=== PATIENT | female | born 1985 ===

== ENCOUNTER 2020-11-27 22:33 | Inpatient (IN) | payer MEDICAID ==
[~2020-11-27] VITALS: Ht 165.1 cm; Wt 83.6 kg
--- NOTE | 2020-11-27 22:40 | NUR ---
G3L2 at 39 weeks and 5 days arrives to unit with complaint of contractions every 4 minutes starting around 2200 and has had some bloody show. Pt reports good movement and denies LOF. Pt denies headaches, blurry vision, or RUQ pain. Clean gown on. Pt oriented to room, bed in low and locked position, call light within reach. US and toco explained and applied. Plan of care reviewed with patient and spouse. Admission assessment started. Vital signs obtained. SVE 4/75/-3, ballotable, membranes intact.
[2020-11-27 23:00] VITALS: BP 124/75; PULSE 78; TEMP 98.4
[2020-11-27 23:15] VITALS: BP 110/63; PULSE 80
[2020-11-27 23:30] VITALS: BP 100/59; PULSE 77
[2020-11-27] MEDS ORDERED: PRENATAL TABLET PO (23:37)
[2020-11-27] MEDS ORDERED: FERROUSAL325 MG PO (23:37)
[2020-11-27 23:45] VITALS: BP 98/57; PULSE 78
[2020-11-28] VITALS (23 sets, daily range): BP systolic 96–154; BP diastolic 56–119; PULSE 71–92; TEMP 97.6–98.3
--- NOTE | 2020-11-28 | NUR ---
18G IV started in left forearm with 1 attempt. Admission labs obtained off IV start. Lactated Ringers bolus infusing. Karol.ANDRES Douglass notified to come to bedside for epidural. Consents reviewed and signed with patient and spouse. All questions answered. Verbalized understanding.
--- NOTE | 2020-11-28 00:29 | NUR ---
0020 - Sarah Beth Douglass CRNA at bedside for epidural placement. Procedure, risks, benefits explained to patient, pt verbalized understanding. Pt repositioned to sitting on edge of bed. 0025 - Difficutly tracing FHR due to maternal positioning. 0029 - Single shot by ANDRES Oh, pt denies any adverse reactions. 0035 - Pt positioned to left lateral for comfort. Safety precautions reviewed. Call light within reach, bed in low and locked position. See Anesthesia record.
[2020-11-28 00:37] LABS: BASO % 0.4 % (0.0-2.0); EOS # 0.1 (0.0-0.7); EOS % 0.7 % (0-4.0); GRAN % 70.8 % (42.2-75.2); HEMATOCRIT 42.7 % (37.0-47.0); LYMPH # 2.4 (1.2-3.4); LYMPH % 21.1 % (20.0-51.0); MEAN CELL VOLUME 77 fl (80.0-100.0); MEAN CORPUSCULAR HEMOGLOBIN 25 pg (27.0-31.0); MEAN CORPUSCULAR HGB CONC 33 g/dl (33.0-37.0); MEAN PLATELET VOLUME 12.2 fl (7.4-10.4); MONO # 0.7 (0.1-0.6); MONO % 6.5 % (1.7-9.3); PLATELET COUNT 240 K/mm3 (130-400); RED BLOOD COUNT 5.55 M/mm3 (4.10-5.30); REDCELL DISTRIBUTION WIDTH-CV 15.8 % (11.5-14.5)
--- NOTE | 2020-11-28 01:30 | NUR ---
Arnold catheter placed to dependent drainage at this time. Clear, yellow urine returned. Secured to leg with statlock. SVE 8/100/-2 with bulging bag of water. 0135 - Pt called out stating she felt a large gush. Large amount of meconium fluid noted on peritowel. Towel changed and pericare provided.
--- NOTE | 2020-11-28 02:26 | NUR ---
0205 - Pt calls out reporting she feels more rectal pressure. SVE 10/+1 and patient feeling urge to push. Dr. Noel notified, see physician notification. 0220 - Arnold catheter removed at this time. 200 mL clear, yellow urine out. Pt positioned into footplates. Educated on pushing techniques, verbalized understanding. Dr. Noel gowned and gloved at perineum. Nursery RN Miranda Tinoco at bedside. 0224 - Initial push at this time. Pushing well. 0226 - Spontaneous vaginal delivery of viable girl. Infant placed to mothers abdomen, care of infant assumed to ED [facility]. Cord clamped x [address] Noel and cut by FOB. Cord blood obtained. 0233 - Spontaneous delivery of intact placenta. Fundal massage by Dr. Noel. Pitocin started at 333 mL/hr per protocol. Small amount of bleeding noted. Second degree perineal laceration repaired by Dr. Noel. EBL 400. 0240 - Pericare provided. Clean chux beneath patient. Ice pack to perineum. Pt repositioned in bed for comfort. Reviewed plan of care. recovery started. See physician delivery note.
--- NOTE | 2020-11-28 05:40 | NUR ---
Pt able to lift and hold each leg off of bed for 5 seconds. Pt positioned to sitting on edge of bed. Epidural catheter removed. Tip smooth, blue, and intact. Pt then able to ambulate to bathroom with standby assistance but was a little unsteady due to a right leg. Pt able to void 600 urine. Pericare explained and provided. Mesh panties and peripad on. Clean gown on. Pt educated on need of 3 measured voids. Pt transferred to room 207 by wheelchair with belongings.
[2020-11-28] MEDS ORDERED: MOTRIN 800800 MG/TAB PO (08:33)
--- NOTE | 2020-11-28 10:04 | NUR ---
Initial visit; Patient thanked Surgery Scheduling Coordinator for offering congratulations for the of her daughter. Surgery Scheduling Coordinator thanked patient for choosing [facility].
[2020-11-29 08:50] VITALS: BP 107/62; PULSE 87; TEMP 97.4
[2020-11-29 17:00] VITALS: BP 108/66; PULSE 83; TEMP 98.3
--- NOTE | 2020-11-29 19:25 | NUR ---
certificate completed and signed. Discharge paperwork given to pt and by day shift. Pt ambulatory off unit with this RN
== END 2020-11-29 19:25 | disposition home or self-care (01) | DRG 807 ==
LOC: LDRO 22:33 → LDR 22:40 → LDRO 23:49 → LDR 23:50 → OB 23:50
PROVIDERS: Student in an Organized Health Care Education/Training Program; ADMIT Obstetrics & Gynecology
PROC: 10E0XZZ Delivery of Products of Conception, External Approach (ICD-10-PCS; principal; 2020-11-28)
PROC: 0KQM0ZZ Repair Perineum Muscle, Open Approach (ICD-10-PCS; 2020-11-28)
DX: O99.02 Anemia complicating childbirth (principal); Z37.0 Single live birth; D64.9 Anemia, unspecified; O77.0 Labor and delivery complicated by meconium in amniotic fluid; O70.1 Second degree perineal laceration during delivery; Z3A.39 39 weeks gestation of pregnancy
CPT/HCPCS: J2590; J7120

== ENCOUNTER → 2021-02-14 | Outpatient (CLI) | payer MEDICAID ==
[~2021-02-14] MED LIST: FERROUSAL325 MG PO; MOTRIN 800800 MG/TAB PO; PRENATAL TABLET PO
== END ==
LOC: MC.RAD 08:30
DX: N63.20 Unspecified lump in the left breast, unspecified quadrant (principal)